=== PATIENT | female | born 1955 | race Caucasian/White ===

== ENCOUNTER 2019-12-01 19:47 | Emergency (ER) | payer MEDICARE, OTHER ==
[2019-12-01] MEDS ORDERED: Sodium Chloride 0.9% 10 ML Syringe FLUSH PRN ×2 (19:50)
[2019-12-01] MEDS ORDERED: EPINEPHrine 1 MG/ML SDV IM ONE (19:50)
[2019-12-01] MEDS ORDERED: methylPREDNISolone Sodium Succinate 125 MG/2 ML SDV IV ONE (19:50)
[2019-12-01] MEDS ORDERED: diphenhydrAMINE 50 MG/ML SDV IVPUSH ONE (19:50)
--- NOTE | 2019-12-01 19:53 | EDM.PDOC ---
ED HPI GENERAL MEDICAL PROBLEM - General Stated Complaint: ALLERGIC REACTION Time Seen by Provider: 12/01/19 19:50 Source of Information: Reports: Patient, RN Notes Reviewed History Limitations: Reports: No Limitations - History of Present Illness INITIAL COMMENTS - FREE TEXT/NARRATIVE: 64-year-old female presents emergency department today complaint of allergic reaction, she feels like her throat is closing she is having difficulty swallowing she is breathing okay. She took 1 dose of Bactrim approximately 2 hours prior she noticed the symptoms starting about 30 minutes after taking the medication she has taken Benadryl 2 times at home 25 mg each. - Related Data Allergies Allergy/AdvReac Type Severity Reaction Status Date / Time cefaclor [From Ceclor] Allergy Hives Verified 12/01/19 20:02 Fish Containing Products Allergy Nausea and Verified 12/01/19 20:02 Vomiting Penicillins Allergy Hives Verified 12/01/19 20:02 simvastatin Allergy Hives Verified 12/01/19 20:02 sulfamethoxazole Allergy Swelling Verified 12/01/19 20:02 [From Bactrim] trimethoprim [From Bactrim] Allergy Swelling Verified 12/01/19 20:02 Home Meds: Home Meds Allopurinol [Zyloprim] 1 tab PO BID 12/01/19 [History] Aspirin 1 tab PO DAILY 12/01/19 [History] Calcium Carbonate/Vitamin D3 [Calcium 600-Vit D3 400 Tablet] 1 tab PO BID [History] Cholecalciferol (Vitamin D3) [Vitamin D3] 1 tab PO DAILY 12/01/19 [History] Lactobacillus Acidophilus [Acidophilus] 1 tab PO BID 12/01/19 [History] Multivitamin [Multi-Day Vitamins] 1 tab PO DAILY 12/01/19 [History] RABEprazole Sodium [Aciphex] 1 tab PO DAILY 12/01/19 [History] Triamterene/Hydrochlorothiazid [Triamterene-HCTZ 37.5-25 MG] 1 tab PO DAILY 09/16 [History] Ubidecarenone [Co Q-10] 1 tab PO DAILY 12/01/19 [History] atenoloL [Atenolol] 1 tab PO DAILY 12/01/19 [History] atorvaSTATin Calcium [Lipitor] 1 tab PO DAILY 12/01/19 [History] Social & Family History - Tobacco Use Smoking Status *Q: Never Smoker ED ROS ALLERGIC REACTION - Review of Systems Review Of Systems: See Below Constitutional: Reports: No Symptoms HEENT: Reports: Throat Pain, Throat Swelling Respiratory: Reports: No Symptoms Cardiovascular: Reports: No Symptoms GI/Abdominal: Reports: No Symptoms ED EXAM GENERAL NO PERIP PULSE - Physical Exam Exam: See Below Exam Limited By: No Limitations General Appearance: Alert, Mild Distress Throat/Mouth: Normal Inspection, Normal Lips, Normal Teeth, Normal Gums, Normal Oropharynx, Normal Voice, No Airway Compromise Head: Atraumatic, Normocephalic Neck: Normal Inspection, Supple, Non-Tender, Full Range of Motion Respiratory/Chest: No Respiratory Distress, Lungs Clear, Normal Breath Sounds, No Accessory Muscle Use, Chest Non-Tender Cardiovascular: Regular Rate, Rhythm, No Murmur Course - Vital Signs Last Recorded V/S: Last Vital Signs Temp 98.9 F 12/01/19 20:12 Pulse 102 H 12/01/19 23:30 Resp 15 12/01/19 23:30 BP 125/62 12/01/19 23:30 Pulse Ox 96 12/01/19 23:30 - Orders/Labs/Meds Orders: Active Orders 24 hr Category Date Time Status Peripheral IV Care [RC] . DIRECTED Care 12/01/19 19:51 Active Sodium Chloride 0.9% [Saline Flush] Med 12/01/19 19:50 Active 10 ml FLUSH ASDIRECTED PRN Sodium Chloride 0.9% [Saline Flush] Med 12/01/19 19:50 Active 10 ml FLUSH ASDIRECTED PRN Peripheral IV Insertion Adult [OM.PC] Urgent Oth 12/01/19 19:50 Ordered Medication Orders Sodium Chloride (Saline Flush) 10 ml FLUSH ASDIRECTED PRN PRN Reason: Keep Vein Open Last Admin: 12/01/19 20:26 Dose: 10 ml Sodium Chloride (Saline Flush) 10 ml FLUSH ASDIRECTED PRN PRN Reason: Keep Vein Open Last Admin: 12/01/19 21:50 Dose: 10 ml Meds: Medications Generic Name Dose Route Start Last Admin Trade Name Freq PRN Reason Stop Dose Admin Sodium Chloride 10 ml 12/01/19 19:50 12/01/19 20:26 Saline Flush FLUSH 10 ml ASDIRECTED PRN Administration Keep Vein Open Sodium Chloride 10 ml 12/01/19 19:50 12/01/19 21:50 Saline Flush FLUSH 10 ml ASDIRECTED PRN Administration Keep Vein Open Discontinued Medications Generic Name Dose Route Start Last Admin Trade Name Donald PRN Reason Stop Dose Admin Diphenhydramine HCl 50 mg 12/01/19 19:50 12/01/19 19:56 Benadryl IVPUSH 12/01/19 19:51 50 mg ONETIME ONE Administration Epinephrine HCl 0.4 mg 12/01/19 19:50 12/01/19 20:25 Adrenalin IM 12/01/19 19:51 0.4 mg ONETIME ONE Administration Methylprednisolone Sodium Succinate 125 mg 12/01/19 19:50 12/01/19 19:54 Solu-Medrol IV 12/01/19 19:51 125 mg ONETIME ONE Administration Ondansetron HCl 4 mg 12/01/19 21:27 12/01/19 21:49 Zofran IVPUSH 12/01/19 21:28 4 mg ONETIME ONE Administration Departure - Departure Time of Disposition: 23:40 Disposition: Home, Self-Care 01 Condition: Fair Clinical Impression: Anaphylactic reaction Qualifiers: Encounter type: initial encounter Qualified Code(s): T78.2XXA - Anaphylactic shock, unspecified, initial encounter - Discharge Information Instructions: Anaphylactic Reaction, Adult Additional Instructions: Recommend avoiding sulfa drugs, with your primary care as needed Sepsis Event Note - Focused Exam Vital Signs: Vital Signs Temp Pulse Resp BP Pulse Ox 12/01/19 23:30 102 H 15 125/62 96 12/01/19 22:47 82 24 H 126/59 L 94 L 12/01/19 22:14 107 H 15 111/61 94 L 12/01/19 21:42 96 26 H 122/51 L 90 L 12/01/19 21:20 97 23 H 121/56 L 12/01/19 20:53 102 H 23 H 127/58 L 92 L 12/01/19 20:32 97 16 136/83 95 12/01/19 20:12 98.9 F 104 H 20 145/101 H 98 12/01/19 20:10 90 23 H 171/94 H 94 L 12/01/19 19:55 98.9 F 104 H 20 145/101 H 98 Date Exam was Performed: 06/03/20 Time Exam was Performed: 23:39 - My Orders Last 24 Hours: My Active Orders 12/01/19 19:50 Sodium Chloride 0.9% [Saline Flush] 10 ml FLUSH ASDIRECTED PRN Sodium Chloride 0.9% [Saline Flush] 10 ml FLUSH ASDIRECTED PRN Peripheral IV Insertion Adult [OM.PC] Urgent 12/01/19 19:51 Peripheral IV Care [RC] . DIRECTED - Assessment/Plan Last 24 Hours: My Active Orders 12/01/19 19:50 Sodium Chloride 0.9% [Saline Flush] 10 ml FLUSH ASDIRECTED PRN Sodium Chloride 0.9% [Saline Flush] 10 ml FLUSH ASDIRECTED PRN Peripheral IV Insertion Adult [OM.PC] Urgent 12/01/19 19:51 Peripheral IV Care [RC] . DIRECTED Plan: Assessment Acuity = acute Site and laterality = allergic reaction Etiology = sulfa based Manifestations = throat swelling now resolved Location of injury = Home Lab values = none Plan Good improvement with Benadryl, epinephrine, Solu-Medrol plan is to avoid sulfa- based medication follow-up primary care as needed This note was dictated using [employer] voice recognition software please call with any questions on syntax or grammar.
[2019-12-01] MEDS ORDERED: Ondansetron 4 MG/2 ML SDV IVPUSH ONE (21:27)
== END 2019-12-02 00:02 | disposition home or self-care (01) ==
LOC: JP.ED 19:47
DX: T78.2XXA Anaphylactic shock, unspecified, initial encounter (principal); Z88.1 Allergy status to other antibiotic agents; Z91.013 Allergy to seafood; Z88.0 Allergy status to penicillin; Z88.2 Allergy status to sulfonamides; Z79.82 Long term (current) use of aspirin; Z79.899 Other long term (current) drug therapy
CPT/HCPCS: 96372; 96374; 96375; 99283; J0171; J1200; J2405; J2930